=== PATIENT | female | born 1955 | race American Indian/Alaskan Native ===

== ENCOUNTER 2017-04-10 12:13 | Outpatient (CLI) | payer OTHER ==
--- NOTE | 2017-04-10 14:14 | Mammography Report ---
BILATERAL MAMMOGRAM with CAD: HISTORY:Cancer screening. Comparison study is dated March 22, 2016. FINDINGS: The breasts are almost entirely fat (<25% glandular). No mass, distortion, suspicious calcification, or skin change is seen. IMPRESSION: Negative mammogram. There is no mammographic evidence of malignancy. RECOMMENDATION: Follow-up per ACS guidelines. BI-RADS CATEGORY: 1 = Negative ACR BI-RADS MAMMOGRAPHIC CODES: 0 = Needs additional imaging evaluation; 1 = Negative; 2 = Benign; 3 = Probably benign; 4 = Suspicious; 5 = Malignant; 6 = Known biopsy-proven malignancy COMMENT: 1. Dense breast tissue, i.e., adenosis, fibrocystic changes, etc., may obscure an underlying neoplasm. 2. Approximately 10% of cancers are not detected with mammography. 3. A negative mammography report should not delay biopsy if a clinically suspicious mass is present. COMMENT: Patient follow-up letters are generated in [employer].
== END 2017-04-10 12:14 | disposition home or self-care (01) ==
LOC: MAMMO 12:13
PROVIDERS: ATTEND Internal Medicine
DX: Z12.31 Encounter for screening mammogram for malignant neoplasm of breast (principal); I10 Essential (primary) hypertension
CPT/HCPCS: 77067; G0202

== ENCOUNTER 2017-12-12 11:52 | Outpatient (CLI) | payer OTHER ==
--- NOTE | 2017-12-12 17:43 | Ultrasound Report ---
FINAL REPORT EXAM: US TRANSVAGINAL HISTORY: FIBROIDS TECHNIQUE: Transabdominal and transvaginal sonography of the pelvis. PRIORS: None. FINDINGS: The uterus is enlarged measuring 11.3 x 6.3 x 5 cm, and has heterogeneous echotexture. Ovoid, hypoechoic fibroid in the posterior fundal region measures 1.9 x 1.2 x 1.9 cm. Endometrial stripe abnormally thickened measuring 24 mm in AP dimension and mildly heterogeneous. Neither ovary confidently identified by tax technician. Questionable right ovary measures 7.8 x 6.3 x 5.7 cm, with cystic changes. Questionable left ovary measures 7.0 x 6.0 x 5.8 cm, also with cystic changes. No other adnexal masses or significant free peritoneal fluid. IMPRESSION: 1. Enlarged uterus, with leiomyomatous change. 2. Abnormally thickened and heterogeneous endometrial stripe. Differential diagnosis includes hyperplasia, polyp or carcinoma. Clinical correlation and followup suggested. 3. Ovaries not confidently identified, and findings which may represent pedunculated fibroids, with cystic degeneration versus enlarged ovaries, with cystic changes, as reported.
--- NOTE | 2017-12-12 17:44 | Ultrasound Report ---
FINAL REPORT EXAM: US PELVIC COMPLETE HISTORY: FIBROIDS TECHNIQUE: Transabdominal and transvaginal sonography of the pelvis. PRIORS: None. FINDINGS: The uterus is enlarged measuring 11.3 x 6.3 x 5 cm, and has heterogeneous echotexture. Ovoid, hypoechoic fibroid in the posterior fundal region measures 1.9 x 1.2 x 1.9 cm. Endometrial stripe abnormally thickened measuring 24 mm in AP dimension and mildly heterogeneous. Neither ovary confidently identified by non destructive evaluation technician. Questionable right ovary measures 7.8 x 6.3 x 5.7 cm, with cystic changes. Questionable left ovary measures 7.0 x 6.0 x 5.8 cm, also with cystic changes. No other adnexal masses or significant free peritoneal fluid. IMPRESSION: 1. Enlarged uterus, with leiomyomatous change. 2. Abnormally thickened and heterogeneous endometrial stripe. Differential diagnosis includes hyperplasia, polyp or carcinoma. Clinical correlation and followup suggested. 3. Ovaries not confidently identified, and findings which may represent pedunculated fibroids, with cystic degeneration versus enlarged ovaries, with cystic changes, as reported.
== END 2017-12-12 11:53 | disposition home or self-care (01) ==
LOC: US 11:52
DX: N85.2 Hypertrophy of uterus (principal); R93.8 Abnormal findings on diagnostic imaging of other specified body structures
CPT/HCPCS: 76830; 76856

== ENCOUNTER 2018-01-23 10:25 | Day surgery (SDC) | payer OTHER ==
[2018-01-23 10:57] VITALS: BP 119/75
[2018-01-23 11:14] LABS: INR 1.05 (0.87-1.13)
[2018-01-23 11:15] LABS: Partial Thromboplastin Time 30.3 Sec. (24.2-36.6)
--- NOTE | 2018-01-23 13:56 | Ultrasound Report ---
ULTRASOUND PARACENTESIS History: Ascites, ovarian cancer. Description of procedure: Informed consent was obtained. Sterile technique was utilized. 1% lidocaine for skin anesthesia. Using ultrasound guidance, a 5 Azeri centesis needle was advanced into the left lower quadrant peritoneal space. There was spontaneous return of slightly cloudy yellow fluid. 2.0 L of fluid was aspirated and discarded. No complications. Impression: Successful ultrasound guided paracentesis as described.
--- NOTE | 2018-01-23 13:59 | Short Stay Summary ---
Short Stay Documentation Date of service: 01/23/18 - History Principal diagnosis: ovarian cancer, ascites H&P: obtained from office - Allergies and Medications Current Medications: Allergies No Known Allergies Allergy (Verified 05/17/16 20:57) Home Medications Medication Instructions Recorded Confirmed Last Taken Type Losartan [Cozaar] 100 mg PO QDAY #30 tablet 05/27/16 01/23/18 01/22/18 Rx 100mg Ferrous Sulfate [Feosol 325 MG tab] 325 mg PO QDAY 01/16/18 01/23/18 01/09/18 History 325mg Multivit-Min/FA/Lycopen/Lutein 1 each PO DAILY 01/16/18 01/23/18 01/22/18 History [Centrum Silver Tablet] 1 tab Topiramate [Topamax] 50 mg PO BID PRN 01/16/18 01/23/18 01/09/18 History 50mg amLODIPine [Norvasc] 10 mg PO DAILY 01/16/18 01/23/18 01/17/18 History 10mg clonazePAM [KlonoPIN] 1 mg PO BID PRN 01/16/18 01/23/18 01/22/18 History 1mg HYDROcodone/APAP 5-325 [[place] 1 each PO Q6H PRN #12 tablet 01/20/18 01/23/18 Unknown Rx 5-325 mg TAB] - Physical exam General appearance: no acute distress Gastrointestinal: distended - Brief post op/procedure progress note Date of procedure: 01/23/18 Pre-op diagnosis: ascites Post-op diagnosis: same Procedure: US paracentesis Anesthesia: local Findings: moderate ascites Surgeon: BRANDAN MERCADO Estimated blood loss: none Pathology: none Specimen disposition: discarded Condition: stable - Disposition Condition at discharge: Good Disposition: DC-01 TO HOME OR SELFCARE Short Stay Discharge Plan Follow up with: YANIV LATHAM MD [Primary Care Provider] - 7 Days
== END 2018-01-23 10:26 | disposition home or self-care (01) ==
LOC: CATHLABREC 10:25 → EDSTATUS 12:00
PROVIDERS: ATTEND Internal Medicine Hematology & Oncology
DX: R18.8 Other ascites (principal); C56.9 Malignant neoplasm of unspecified ovary; Z79.01 Long term (current) use of anticoagulants
CPT/HCPCS: 36415; 49083; 85610; 85730

== ENCOUNTER 2018-03-09 09:31 | Outpatient (CLI) | payer OTHER ==
[2018-03-09 10:27] LABS: Blood Urea Nitrogen 13 mg/dL (7-17)
--- NOTE | 2018-03-09 13:22 | Cat Scan Report ---
CT CHEST WITH CONTRAST: HISTORY: Malignant neoplasm of unspecified ovary. COMPARISON: No relevant comparison. TECHNIQUE: Helical CT in 1.25mm intervals following IV contrast. Sagittal and coronal reformatted images. FINDINGS: Thyroid gland: Normal. Tracheobronchial tree: Normal. Esophagus: Normal. Heart: Normal. Pericardium: Normal. Mediastinum: Normal. Lung Cosme: Normal. Pleural Spaces: Normal. Musculoskeletal: Normal. IMPRESSION: Unremarkable CT chest with contrast. No evidence for metastatic disease to the chest.
--- NOTE | 2018-03-09 14:04 | Nuclear Medicine Report ---
BONE SCAN: History: Malignant neoplasm of unspecified ovary. Comparison: CT chest abdomen and pelvis performed the same day. After injection of isotope, gamma camera imaging of the bony system was done. There is a normal uptake of isotope throughout the bony structures without areas of significantly increased or decreased uptake. Normal uptake in the urinary system is seen. IMPRESSION: Negative bone scan.
--- NOTE | 2018-03-09 14:56 | Cat Scan Report ---
CT ABDOMEN PELVIS WITH CONTRAST: HISTORY: Malignant neoplasm of unspecified ovary. COMPARISON: 01/16/18. TECHNIQUE: Helical CT in 1.25mm intervals following IV contrast. Sagittal and coronal reconstructions. FINDINGS: Liver: Normal. Biliary system: Cholecystectomy. No biliary dilatation. Pancreas: Normal. Spleen: Normal. Kidneys/ureters/bladder: Normal. Adrenal glands: Normal. Aorta: Normal. Intestines: The bowel loops are normal caliber with no evidence of acute inflammation or obstruction. There is moderate soft tissue density throughout the anterior mesentery consistent with omental caking. There are a few enhancing nodular soft tissue lesions in the paracolic gutters bilaterally consistent with peritoneal metastasis. Omental caking appears decreased by approximately 25% since 01/16/18. Appendix: Normal. Pelvic viscera: A complex multicystic mass in the pelvis is identified which has increased from 10.2 x 9.7 cm to 11.5 x 10.5 cm. The uterus is difficult to identify. Hysterectomy has been performed or the uterus is compressed anteriorly. Please correlate with the patient's clinical history. Ascites: Small to medium ascites is identified but has decreased by at least 50-75% since the previous exam. Adenopathy: Scattered mildly enlarged lymph nodes in the retroperitoneum and base of the mesentery appear stable. The largest lymph node in the aortocaval chain measures 1.9 x 1.7 cm. Musculoskeletal: No suspicious bony lesion or acute fracture is identified. Schmorl's node along the superior endplate of L4 is unchanged. IMPRESSION: Overall, a positive response to therapy is suspected since 01/16/18 exam. Cystic mass in the pelvis has increased in size as outlined above. There is decreased omental caking throughout the anterior mesentery and decreased ascites since the previous exam. Stable retroperitoneal lymph nodes..
== END 2018-03-09 09:32 | disposition home or self-care (01) ==
LOC: NM 09:31
PROVIDERS: ATTEND Internal Medicine Hematology & Oncology
DX: C56.9 Malignant neoplasm of unspecified ovary (principal); I10 Essential (primary) hypertension; F41.9 Anxiety disorder, unspecified; D64.9 Anemia, unspecified
CPT/HCPCS: 36415; 71260; 74177; 78306; 82565; 84520; A9503; Q9967

== ENCOUNTER 2018-04-22 10:34 | Outpatient (CLI) | payer OTHER ==
--- NOTE | 2018-04-22 16:08 | Mammography Report ---
BILATERAL DIGITAL SCREENING MAMMOGRAM with CAD: 04/22/18 10:34:00 CLINICAL: Routine screening. COMPARISON:04/10/17 FINDINGS: The breasts are almost entirely fatty. No mass, architectural distortion or suspicious calcifications. IMPRESSION: No mammographic evidence of malignancy. BI-RADS CATEGORY: 1 - - Negative RECOMMENDATION: Routine mammographic screening in one year. COMMENT: Patient follow-up letters are generated by our [employer] application.
== END 2018-04-22 10:35 | disposition home or self-care (01) ==
LOC: MAMMO 10:34
PROVIDERS: ATTEND Internal Medicine
DX: Z12.31 Encounter for screening mammogram for malignant neoplasm of breast (principal); I10 Essential (primary) hypertension; Z90.49 Acquired absence of other specified parts of digestive tract
CPT/HCPCS: 77067